=== PATIENT | male | born 2000 | race Caucasian/White ===

== ENCOUNTER 2019-05-07 15:55 | Emergency (ER) | payer OTHER | END 2019-05-07 18:39 | disposition home or self-care (01) | LOC: FTE 15:55 | DX: S93.402A Sprain of unspecified ligament of left ankle, initial encounter (principal); X50.1XXA Overexertion from prolonged static or awkward postures, initial encounter; Y92.322 Soccer field as the place of occurrence of the external cause | CPT/HCPCS: 73610; 73630-LT; 99283-25 ==